=== PATIENT | female | born 1980 | race Caucasian/White ===

== ENCOUNTER 2022-07-10 17:08 | Emergency (ER) | payer OTHER ==
[2022-07-10 17:54] LABS: Absolute Lymphocytes (CBC) 2.8 K/uL (0.7-4.9); Hematocrit 44.3 % (36.0-45.0); Lymphocytes % 31.4 % (15.3-44.8); MCV 86.2 fL (80-100); MPV 9.4 fL (7.6-11.3); RBC Red Blood Cell Count 5.14 M/uL (3.86-4.86)
--- NOTE | 2022-07-10 18:20 | RAD REPORT ---
EXAM DESCRIPTION: US - Extremity Venous Uni Ltd - 07/10/2022 6:11 pm CLINICAL HISTORY: Pain COMPARISON: None. TECHNIQUE: Real-time sonographic evaluation of the left lower extremity deep venous system was perfo rmed. FINDINGS: Normal compressibility, flow augmentation, phasic flow and spontaneous flow is identified in the left lower extremity deep venous system. No intraluminal filling defects seen. IMPRESSION: No DVT in the left lower extremity.
[2022-07-10 18:30] LABS: Urine Blood Negative (Negative); Urine Glucose Negative (Negative); Urine Protein Negative (Negative); Urine pH 8.5 (5.0-7.0)
[2022-07-10 18:38] LABS: Urine Bacteria <20 /HPF (<20); Urine Mucus Slight /HPF (None Seen); Urine RBC <5 /HPF (None Seen)
[2022-07-10] MEDS ORDERED: KETOROLAC 30 MG/ML INJ ONE (18:40)
[2022-07-10 19:27] LABS: Albumin 3.5 g/dL (3.4-5.0); Bilirubin Total 0.6 mg/dL (0.2-1.0); Protein, Total 7.6 g/dL (6.4-8.2)
[2022-07-10 19:36] LABS: Potassium 6.1 mmol/L (3.5-5.1)
--- NOTE | 2022-07-10 20:38 | RAD REPORT ---
EXAM DESCRIPTION: CTAbdomen Pelvis W Contrast - 07/10/2022 8:19 pm CLINICAL HISTORY: Epigastric pain COMPARISON: No comparisons TECHNIQUE: CT of the abdomen and pelvis was performed. All CT scans are performed using dose optimization technique as appropriate and may include automated exposure control or mA/KV adjustment according to patient size. FINDINGS: Lower chest: No acute abnormality. Mild circumferential thickened distal esophagus which m ay reflect reflux esophagitis. Liver: No acute abnormality or suspicious lesions. Biliary: No biliary ductal dilatation. Stomach: No significant focal abnormality. Duodenum: No significant focal abnormality. Pancreas: No significant abnormality. Spleen: No significant abnormality. Adrenal: No suspicious lesions. Kidney/ureter: No hydronephrosis. No renal calculi. Retroperitoneum: Several lobular fatty structures in the retroperitoneum on the left side of uncertai n etiology. One of the lobules measures approximately 7.5 x 3.8 cm. Vascular: No aneurysm. Bowel: No significant focal abnormality. Normal appendix. Peritoneum: No ascites or free air. Bladder: Grossly unremarkable. Reproductive: No adnexal masses. Bones: No acute fracture. Other: n/a IMPRESSION: No acute intra-abdominal or pelvic finding. Circumferential thickened distal esophagus w hich may reflect esophagitis. Nearly completely fat containing left-sided retroperitoneal structures of uncertain etiology. These m ay represent lipomas. Though a low grade liposarcoma is unlikely and out of an abundance of caution, I would suggest a 6 month follow contrast enhanced [address] of the abdomen and pelvis.
--- NOTE | 2022-07-10 20:53 | ER ---
Nurse's Notes [facility] Name: Claudette Kingsley Age: 42 yrs Sex: Female : 1980 Arrival Date: 07/10/2022 Time: 17:11 Bed 18 Private MD: Diagnosis: Esophagitis, unspecified;Upper abdominal pain, unspecified Presentation: 07/10 17:32 Chief complaint: Patient states: abd pain x months ago and diarrhea. Pt states "every aa5 time after I eat I get the pain". Pt also reports swelling to left leg post sx for staph infection "months ago". Coronavirus screen: diarrhea. Ebola Screen: Patient denies travel to an Ebola-affected area in the 21 days before illness onset. Initial Sepsis Screen: Does the patient meet any 2 criteria? No. Patient's initial sepsis screen is negative. Does the patient have a suspected source of infection? No. Patient's initial sepsis screen is negative. Risk Assessment: Do you want to hurt yourself or someone else? Patient reports no desire to harm self or others. Onset of symptoms was 2021. 17:32 Acuity: CHINO 3 aa5 17:32 Method Of Arrival: Ambulatory aa5 Triage Assessment: 18:05 General: Appears in no apparent distress. obese, Behavior is cooperative, appropriate bp for age, anxious. Pain: Complains of pain in abdomen. EENT: No deficits noted. Neuro: No deficits noted. Cardiovascular: No deficits noted. Respiratory: No deficits noted. GI: Reports lower abdominal pain, upper abdominal pain, nausea. : No signs and/or symptoms were reported regarding the genitourinary system. Derm: No deficits noted. Musculoskeletal: Reports BLE EDEMA. Historical: - Allergies: 17:34 PENICILLINS; aa5 - PMHx: 17:34 Hypothyroidism; aa5 - PSHx: 17:35 Left leg for staph infection; aa5 17:37 section; aa5 - Immunization history:: Adult Immunizations unknown. - Social history:: Smoking status: Patient denies any tobacco usage or history of. - Family history:: not pertinent. Screenin:05 [facility] ED Fall Risk Assessment (Adult) History of falling in the last 3 months, bp including since admission No falls in past 3 months (0 pts). Abuse screen: Denies threats or abuse. Denies injuries from another. Nutritional screening: No deficits noted. Tuberculosis screening: No symptoms or risk factors identified. Assessment: 18:05 General: SEE TRIAGE NOTE. bp 18:15 Reassessment: PT TO ROOM AFTER U/S. bp 19:23 Reassessment: Patient is alert, oriented x 3, equal unlabored respirations, skin jj7 warm/dry/pink. ASSUMED CARE OF PT. PT SITTING UP IN BED TALKING TO HER MOTHER. NO PAIN OR DISTRESS AT THIS TIME. VS STABLE. CALL MCKINNEY IN REACH. NO NEEDS AT THIS TIME. Vital Signs: 17:32 BP 147 / 93; Pulse 71; Resp 18 S; Temp 97.9(TE); Pulse Ox 99% on R/A; Weight 151.95 kg aa5 (R); Height 5 ft. 8 in. (172.72 cm) (R); 18:51 BP 150 / 14; Pulse 59; Resp 16; Pulse Ox 97% ; bp 19:23 BP 132 / 79; Pulse 62; Resp 20; Pulse Ox 97% ; jj7 20:30 BP 135 / 76; Pulse 66; Resp 20; Pulse Ox 100% ; jj7 17:32 Body Mass Index 50.94 (151.95 kg, 172.72 cm) aa5 ED Course: 17:11 Patient arrived in ED. rg4 17:11 Palomo Ambrosio MD is Attending Physician. rt 17:32 Arm band placed on. aa5 17:34 Triage completed. aa5 17:45 Initial lab(s) drawn, by me, sent to lab. Inserted saline lock: 22 gauge in right aa5 antecubital area, using aseptic technique. Blood collected. 18:05 Patient has correct armband on for positive identification. Bed in low position. Call bp light in reach. Side rails up X2. 18:13 Extremity Venous Uni Ltd US In Process Unspecified. EDMS 18:17 Yifan Dunbar, VANGIE is Primary Nurse. bp 18:31 Urine collected: clean catch specimen. bc6 19:26 Primary Nurse role handed off by Yifan Dunbar, RN mw2 19:35 Notified ED physician of a critical lab result(s). potassium of 2.5 Dr Esquivel notified. bb 19:38 Attending Physician role handed off by Palomo Ambrosio MD rn 19:38 Dipak Esquivel MD is Attending Physician. rn 19:41 Rony Saldana, RN is Primary Nurse. jj7 20:21 CT Abd/Pelvis - IV Contrast Only In Process Unspecified. EDMS 21:21 No provider procedures requiring assistance completed. IV discontinued, intact, as6 bleeding controlled, No redness/swelling at site. Pressure dressing applied. Administered Medications: 18:51 Drug: Ketorolac 30 mg Route: IVP; Site: right antecubital; bp 21:20 Follow up: Response: No adverse reaction as6 Medication: 19:23 VIS not applicable for this client. jj7 Outcome: 20:52 Discharge ordered by MD. rn 21:21 Discharged to home ambulatory, with family. as6 21:21 Condition: stable 21:21 Discharge instructions given to patient, Instructed on discharge instructions, follow up and referral plans. medication usage, Demonstrated understanding of instructions, follow-up care, medications, Prescriptions given X 1. 21:21 Patient left the ED. as6 Signatures: Dispatcher [employer] EDMS Deborah Betancourt RN RN bb Dipak Esquivel MD MD rn Calderon, Audri, RN RN Concha Colon rg4 Yifan Dunbar RN RN bp Jessika Light mw2 Tres Rivas RN RN as6 Rony Saldana RN RN jj7 Palomo Ambrosio MD MD rt Camila Winston bc6 Corrections: (The following items were deleted from the chart) 17:35 17:34 Home Meds: None; aa5 aa5 17:35 17:34 PMHx: None; aa5 aa5 17:38 17:32 BP 147 / 93; Pulse 71bpm; Resp 18bpm; Spontaneous; Pulse Ox 99% RA; Temp 97.9F aa5 Temporal; aa5
--- NOTE | 2022-07-10 20:53 | EDPHYS ---
Physician Documentation [facility] Name: Claudette Kingsley Age: 42 yrs Sex: Female : 1980 Arrival Date: 07/10/2022 Time: 17:11 Bed 18 Private MD: ED Physician Dipak Esquivel HPI: 07/10 19:11 This 42 yrs old Female presents to ER via Ambulatory with complaints of Abdominal Pain, rt Leg Swelling. 19:11 The patient presents with abdominal pain in the epigastric area. rt 19:12 Onset: The symptoms/episode began/occurred Chronic. The symptoms do not radiate. rt Associated signs and symptoms: Pertinent positives: diarrhea. The symptoms are described as achy. Modifying factors: The symptoms are alleviated by nothing, the symptoms are aggravated by. Patient presents to the ED with a worsening over the past few days of her chronic epigastric pain. She states that her primary care is worried about her colon. The patient has an associated nonbloody diarrhea. She has nausea without vomiting. Patient also states that she has a chronic swelling of her left leg that is also worse over the past few days. She denies other acute complaints at this time. Pain is aching nature, not otherwise radiating, no other aggravating alleviating factors.. Historical: - Allergies: 17:34 PENICILLINS; aa5 - PMHx: 17:34 Hypothyroidism; aa5 - PSHx: 17:35 Left leg for staph infection; aa5 17:37 section; aa5 - Immunization history:: Adult Immunizations unknown. - Social history:: Smoking status: Patient denies any tobacco usage or history of. - Family history:: not pertinent. ROS: 19:12 Constitutional: Negative for fever, chills, and weight loss, Eyes: Negative for injury, rt pain, redness, and discharge, Cardiovascular: Negative for chest pain, palpitations, and edema, Respiratory: Negative for shortness of breath, cough, wheezing, and pleuritic chest pain, Skin: Negative for injury, rash, and discoloration, Neuro: Negative for headache, weakness, numbness, tingling, and seizure. 19:12 Abdomen/GI: Positive for abdominal pain, diarrhea. 19:12 MS/extremity: Positive for pain, Left lower extremity swelling. Exam: 19:12 Constitutional: This is a well developed, well nourished patient who is awake, alert, rt and in no acute distress. Head/Face: Normocephalic, atraumatic. Neck: Trachea midline, no thyromegaly or masses palpated, and no cervical lymphadenopathy. Supple, full range of motion without nuchal rigidity, or vertebral point tenderness. No Meningismus. Chest/axilla: Normal chest wall appearance and motion. Nontender with no deformity. No lesions are appreciated. Cardiovascular: Regular rate and rhythm with a normal S1 and S2. No gallops, murmurs, or rubs. Normal PMI, no JVD. No pulse deficits. Respiratory: Lungs have equal breath sounds bilaterally, clear to auscultation and percussion. No rales, rhonchi or wheezes noted. No increased work of breathing, no retractions or nasal flaring. Skin: Warm, dry with normal turgor. Normal color with no rashes, no lesions, and no evidence of cellulitis. Neuro: Awake and alert, GCS 15, oriented to person, place, time, and situation. Cranial nerves II-XII grossly intact. Motor strength 5/5 in all extremities. Sensory grossly intact. Cerebellar exam normal. Normal gait. Psych: Awake, alert, with orientation to person, place and time. Behavior, mood, and affect are within normal limits. 19:12 Abdomen/GI: Minimal epigastric tenderness without rebound, guarding, distention. 19:12 Musculoskeletal/extremity: 3+ edema to the left lower extremity, no cellulitis, erythema, forage motion of the leg.. Vital Signs: 17:32 BP 147 / 93; Pulse 71; Resp 18 S; Temp 97.9(TE); Pulse Ox 99% on R/A; Weight 151.95 kg aa5 (R); Height 5 ft. 8 in. (172.72 cm) (R); 18:51 BP 150 / 14; Pulse 59; Resp 16; Pulse Ox 97% ; bp 19:23 BP 132 / 79; Pulse 62; Resp 20; Pulse Ox 97% ; jj7 20:30 BP 135 / 76; Pulse 66; Resp 20; Pulse Ox 100% ; jj7 17:32 Body Mass Index 50.94 (151.95 kg, 172.72 cm) aa MDM: 17:41 Patient medically screened. rt 20:51 ED course: No acute findings on CT abdomen, possible esophagitis, abnormal finding in rn retroperitoneum, spoke with patient regarding these findings and will f/u with repeat CT abdomen in 3-6 months with pcp.. 07/10 17:40 Order name: CBC with Diff; Complete Time: 19:05 rt 07/10 17:40 Order name: CMP; Complete Time: 19:44 rt 07/10 17:40 Order name: Lipase; Complete Time: 19:44 rt 07/10 17:40 Order name: UA MICROSCOPIC; Complete Time: 19:05 rt 07/10 18:30 Order name: Urine Dipstick-Ancillary; Complete Time: 19:05 EDMS 07/10 18:32 Order name: Urine --Ancillary (enter results); Complete Time: 19:05 bd 07/10 17:40 Order name: Urine Dipstick-Ancillary (obtain specimen); Complete Time: 18:31 rt 07/10 17:40 Order name: Urine Test (obtain specimen); Complete Time: 18:31 rt 07/10 17:40 Order name: Extremity Venous Uni Ltd US; Complete Time: 19:05 rt 07/10 17:40 Order name: CT Abd/Pelvis - IV Contrast Only; Complete Time: 20:50 rt 07/10 18:07 Order name: Misc. Order: recollect green and lavender; Complete Time: 18:33 jl7 Administered Medications: 18:51 Drug: Ketorolac 30 mg Route: IVP; Site: right antecubital; bp 21:20 Follow up: Response: No adverse reaction as6 Disposition Summary: 07/10/22 20:52 Discharge Ordered Location: Home rn Problem: new rn Symptoms: have improved rn Condition: Stable rn Diagnosis - Esophagitis, unspecified rn - Upper abdominal pain, unspecified rn Followup: rn - With: Private Physician - When: As needed - Reason: Recheck today's complaints, Re-evaluation by your physician Discharge Instructions: - Discharge Summary Sheet rn - Abdominal Pain, Adult rn - Esophagitis rn Forms: - Medication Reconciliation Form rn - Thank You Letter rn - 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
[2022-07-10 22:23] VITALS: TEMP 97.9
[2022-07-10 22:27] VITALS: BP 135/76; O2SAT 100
== END 2022-07-10 21:21 | disposition home or self-care (01) ==
LOC: ER 17:08
DX: K20.90 Esophagitis, unspecified without bleeding (principal); M79.605 Pain in left leg; M79.604 Pain in right leg; Z88.0 Allergy status to penicillin
CPT/HCPCS: 85025; 36415; 81025; 83690; 80053; 74177; 93971; Q9967; 81003; 81015